=== PATIENT | male | born 1970 | race Caucasian/White ===

== ENCOUNTER 2017-06-20 15:35 | Emergency (ER) | payer MEDICARE ==
[2016-05-06 12:20] VITALS: BMI 30.8
[~2017-06-20 15:35] MED LIST: ABILIFY20 MG PO; ALBUTEROL2.5 MG/3 M INH; CATAPRES0.2 MG PO; DILAUDID2 MG PO; HYDROCODON-ACE1 EA12 PO; HYDROCODONE-APA1 TAB PO; HYTRIN5 MG PO; LISINOPRIL-HCTZ1 T13; LISINOPRIL-HCTZ1 T13 PO; MS CONTIN30 MG PO; NORVASC10 MG PO; PEPCID20 MG PO; PRINIVIL20 MG PO; SOMA350 MG PO; TRAZODONE HCL150 MG PO; ULTRAM50 MG PO; XANAX1 MG PO
[2017-06-20 16:18] LABS: BASOPHILS 0.2 % (0-2); EOSINOPHILS 2.3 % (0-7); HEMATOCRIT 41.1 % (42.0-54.0); HEMOGLOBIN 13.9 g/dL (13.5-17.5); IMMATURE GRANULOCYTES 0.4 % (0-5); MCH 32.3 pg (26.0-34.0); MCHC 33.8 g/dL (31.0-37.0); MCV 95.4 fL (80.0-100.0); MEAN PLATELET VOLUME 10.9 fL (7.4-10.4); MONOCYTES 9.2 % (2-11); NEUTROPHILS 59.9 % (40-80); PLATELET COUNT 109 10x3/uL (130-400); RBC 4.31 10x6/uL (4.20-6.10); RDW 14.3 % (11.5-14.5); WBC 5.3 10x3/uL (4.8-10.8)
[2017-06-20 16:36] LABS: ALBUMIN 3.5 g/dL (3.4-5.0); ALKALINE PHOSPHATASE 95 U/L (46-116); ALT (SGPT) 70 U/L (10-68); AMYLASE - SERUM 40 U/L (25-115); CALC OSMOLALITY 283 mosm/kg (275-300); CALCIUM 8.4 mg/dL (8.5-10.1); CARBON DIOXIDE 29.5 mmol/L (21.0-32.0); CHLORIDE - SERUM 104 mmol/L (98-107); CREATININE - SERUM 0.7 mg/dL (0.6-1.3); GLUCOSE 89 mg/dL (74-106); LIPASE 122 U/L (73-393); POTASSIUM - SERUM 3.6 mmol/L (3.5-5.1); PROTEIN - SERUM 6.9 g/dL (6.4-8.2); SODIUM 143 mmol/L (136-145); UREA NITROGEN 12 mg/dL (7-18); eGFR NON AFRICAN AMERICAN > 90 mL/min (90-120)
== END 2017-06-20 18:00 | disposition home or self-care (01) ==
LOC: D.ER 15:35
PROVIDERS: Emergency Medicine
DX: K80.50 Calculus of bile duct without cholangitis or cholecystitis without obstruction (principal); R11.10 Vomiting, unspecified; K29.00 Acute gastritis without bleeding; I10 Essential (primary) hypertension; F17.200 Nicotine dependence, unspecified, uncomplicated

== ENCOUNTER 2017-10-10 02:55 | Inpatient (IN) | payer MEDICARE ==
[2017-10-10] VITALS (15 sets, daily range): BP systolic 110–131; BP diastolic 59–91; BMI 31.8
[~2017-10-10] VITALS: Ht 175.3 cm; Wt 102.5 kg
[2017-10-10 03:34] LABS: BASOPHILS 0.3 % (0-2); EOSINOPHILS 2.9 % (0-7); HEMATOCRIT 48.7 % (42.0-54.0); HEMOGLOBIN 16.4 g/dL (13.5-17.5); IMMATURE GRANULOCYTES 0.8 % (0-5); LYMPHOCYTES 35.9 % (15-50); MCH 33.3 pg (26.0-34.0); MCHC 33.7 g/dL (31.0-37.0); MEAN PLATELET VOLUME 10.4 fL (7.4-10.4); MONOCYTES 9.3 % (2-11); NEUTROPHILS 50.8 % (40-80); RBC 4.92 10x6/uL (4.20-6.10); RDW 15.1 % (11.5-14.5); WBC 8.7 10x3/uL (4.8-10.8)
[2017-10-10 03:43] LABS: UDS - AMPHET NEGATIVE QUAL (NEGATIVE); UDS - BARB NEGATIVE QUAL (NEGATIVE); UDS - BENZO POSITIVE QUAL (NEGATIVE); UDS - COCAINE NEGATIVE QUAL (NEGATIVE); UDS - OPIATE NEGATIVE QUAL (NEGATIVE); UDS - PCP NEGATIVE QUAL (NEGATIVE); UDS - THC NEGATIVE QUAL (NEGATIVE)
[2017-10-10 03:44] LABS: ALKALINE PHOSPHATASE 89 U/L (46-116); ALT (SGPT) 95 U/L (10-68); BILIRUBIN - TOTAL 0.29 mg/dL (0.2-1.3); CALC OSMOLALITY 285 mosm/kg (275-300); CALCIUM 8.9 mg/dL (8.5-10.1); CARBON DIOXIDE 35.6 mmol/L (21.0-32.0); CHLORIDE - SERUM 102 mmol/L (98-107); CREATININE - SERUM 0.9 mg/dL (0.6-1.3); GLUCOSE 138 mg/dL (74-106); MAGNESIUM - SERUM 2.1 mg/dL (1.8-2.4); PLATELET COUNT 132 10x3/uL (130-400); POTASSIUM - SERUM 3.4 mmol/L (3.5-5.1); PROTEIN - SERUM 7.7 g/dL (6.4-8.2); SODIUM 142 mmol/L (136-145); UREA NITROGEN 14 mg/dL (7-18); eGFR NON AFRICAN AMERICAN > 90 mL/min (90-120)
[2017-10-10 03:45] LABS: APPEARANCE CLEAR (CLEAR); BILIRUBIN NEGATIVE (NEGATIVE); COLOR YELLOW (YELLOW); GLUCOSE 50 mg/dL (NEGATIVE); KETONE NEGATIVE (NEGATIVE); NITRITE NEGATIVE (NEGATIVE); PROTEIN NEGATIVE (NEGATIVE); UROBILINOGEN NORMAL (NORMAL)
[2017-10-10 04:50] LABS: TROPONIN-I < 0.017 ng/mL (0.000-0.060)
[2017-10-10] MEDS ORDERED: HYDROCODON-ACE1 EAC9 PO (11:51)
[2017-10-10] MEDS ORDERED: FLOMAX0.4 MG PO (18:07)
[2017-10-10] MEDS ORDERED: DYAZIDE 37.5/251 CAP PO (18:07)
[2017-10-10 21:15] LABS: EOS BF 1 %; MACROPHAGES BF 1 %; NEUT - BF 87 %
[2017-10-11] VITALS (23 sets, daily range): BP systolic 112–160; BP diastolic 69–98; Ht 175.3 cm; Wt 102.5 kg
[2017-10-11 04:49] LABS: INR 1.11 (0.85-1.17); PROTIME 13.9 SECONDS (11.6-15.0)
[2017-10-11 04:50] LABS: BASOPHILS 0 % (0-2); EOSINOPHILS 0 % (0-7); HEMATOCRIT 43.7 % (42.0-54.0); HEMOGLOBIN 14.6 g/dL (13.5-17.5); IMMATURE GRANULOCYTES 0.3 % (0-5); LYMPHOCYTES 9.9 % (15-50); MCH 32.5 pg (26.0-34.0); MCHC 33.4 g/dL (31.0-37.0); MCV 97.3 fL (80.0-100.0); MEAN PLATELET VOLUME 11.6 fL (7.4-10.4); NEUTROPHILS 85.8 % (40-80); PLATELET COUNT 101 10x3/uL (130-400); RBC 4.49 10x6/uL (4.20-6.10); WBC 7.7 10x3/uL (4.8-10.8)
[2017-10-11 04:56] LABS: ANION GAP 12.6 mmol/L (8-16); BILIRUBIN - DIRECT 0.14 mg/dL (0.00-0.30); BILIRUBIN - INDIRECT 0.25 mg/dL (0.00-1.00); BILIRUBIN - TOTAL 0.39 mg/dL (0.2-1.3); CALCIUM 7.9 mg/dL (8.5-10.1); CARBON DIOXIDE 28.9 mmol/L (21.0-32.0); MAGNESIUM - SERUM 1.6 mg/dL (1.8-2.4); PHOSPHOROUS 1.7 mg/dL (2.5-4.9); POTASSIUM - SERUM 3.5 mmol/L (3.5-5.1); PROTEIN - SERUM 6.4 g/dL (6.4-8.2)
[2017-10-11 05:04] LABS: CREATININE - SERUM 1.2 mg/dL (0.6-1.3)
[2017-10-12] VITALS (17 sets, daily range): BP systolic 121–152; BP diastolic 8–92
[2017-10-12 06:49] LABS: BASOPHILS 0 % (0-2); EOSINOPHILS 0 % (0-7); HEMATOCRIT 41.7 % (42.0-54.0); HEMOGLOBIN 14.2 g/dL (13.5-17.5); IMMATURE GRANULOCYTES 0.4 % (0-5); LYMPHOCYTES 5.9 % (15-50); MCHC 34.1 g/dL (31.0-37.0); MEAN PLATELET VOLUME 11.5 fL (7.4-10.4); MONOCYTES 4.4 % (2-11); NEUTROPHILS 89.3 % (40-80); PLATELET COUNT 104 10x3/uL (130-400); RDW 16.3 % (11.5-14.5)
[2017-10-12 07:01] LABS: WBC 10.1 10x3/uL (4.8-10.8)
[2017-10-12 07:08] LABS: ALBUMIN 2.9 g/dL (3.4-5.0); ALKALINE PHOSPHATASE 47 U/L (46-116); ALT (SGPT) 67 U/L (10-68); BILIRUBIN - TOTAL 0.56 mg/dL (0.2-1.3); CALC OSMOLALITY 299 mosm/kg (275-300); CALCIUM 7.7 mg/dL (8.5-10.1); CARBON DIOXIDE 27.4 mmol/L (21.0-32.0); CHLORIDE - SERUM 110 mmol/L (98-107); GLUCOSE 174 mg/dL (74-106); POTASSIUM - SERUM 3.6 mmol/L (3.5-5.1); PROTEIN - SERUM 6.4 g/dL (6.4-8.2); SODIUM 147 mmol/L (136-145); UREA NITROGEN 24 mg/dL (7-18); eGFR NON AFRICAN AMERICAN > 90 mL/min (90-120)
[2017-10-12 07:09] LABS: CREATININE - SERUM 0.8 mg/dL (0.6-1.3); MAGNESIUM - SERUM 2.2 mg/dL (1.8-2.4)
[2017-10-12 07:21] LABS: IMMUNOGLOBULIN E 399 IU/mL (0-100)
[2017-10-12 19:09] LABS: ACID FAST SMEAR Negative (()); AFB SPECIMEN PROCESSING Concentration (())
[2017-10-13 03:00] VITALS: BP 145/93
[2017-10-13 06:27] LABS: BASOPHILS 0 % (0-2); EOSINOPHILS 0 % (0-7); HEMATOCRIT 41.9 % (42.0-54.0); HEMOGLOBIN 14.3 g/dL (13.5-17.5); IMMATURE GRANULOCYTES 0.8 % (0-5); LYMPHOCYTES 7.5 % (15-50); MCH 32.8 pg (26.0-34.0); MCHC 34.1 g/dL (31.0-37.0); MCV 96.1 fL (80.0-100.0); MEAN PLATELET VOLUME 11.4 fL (7.4-10.4); MONOCYTES 5.3 % (2-11); NEUTROPHILS 86.4 % (40-80); PLATELET COUNT 103 10x3/uL (130-400); RBC 4.36 10x6/uL (4.20-6.10); RDW 16.2 % (11.5-14.5); WBC 10.5 10x3/uL (4.8-10.8)
[2017-10-13 06:50] LABS: ALKALINE PHOSPHATASE 47 U/L (46-116); BILIRUBIN - TOTAL 0.59 mg/dL (0.2-1.3); CALC OSMOLALITY 299 mosm/kg (275-300); CALCIUM 7.6 mg/dL (8.5-10.1); CARBON DIOXIDE 26.6 mmol/L (21.0-32.0); CHLORIDE - SERUM 108 mmol/L (98-107); CREATININE - SERUM 0.8 mg/dL (0.6-1.3); GLUCOSE 173 mg/dL (74-106); MAGNESIUM - SERUM 2.1 mg/dL (1.8-2.4); PHOSPHOROUS 1.9 mg/dL (2.5-4.9); POTASSIUM - SERUM 3.3 mmol/L (3.5-5.1); PROTEIN - SERUM 6.4 g/dL (6.4-8.2); SODIUM 146 mmol/L (136-145); UREA NITROGEN 26 mg/dL (7-18); eGFR NON AFRICAN AMERICAN > 90 mL/min (90-120)
[2017-10-13 07:00] VITALS: BP 150/90
[2017-10-13 07:08] LABS: ALT (SGPT) 120 U/L (10-68)
[2017-10-13] MEDS ORDERED: MOBIC7.5 MG PO (07:11)
[2017-10-13] MEDS ORDERED: GABAPENTIN100 MG PO (07:11)
[2017-10-13] MEDS ORDERED: PREDNISONE20 MG PO (10:15)
[2017-10-13] MEDS ORDERED: LEVAQUIN500 MG PO (10:17)
[2017-10-14 12:14] LABS: FUNGUS STAIN Final report (())
[2017-10-20 10:19] LABS: VIRAL - RESULT No virus isolated. (())
[2017-11-09 07:26] LABS: FUNGUS MYCOLOGY CULTURE Final report (())
== END 2017-10-13 11:15 | disposition home or self-care (01) | DRG 871 ==
LOC: D.ER 02:55 → D.ICU 09:24 → D.CVICU 10-11 19:44
PROVIDERS: Emergency Medicine; Internal Medicine Nephrology; Internal Medicine Pulmonary Disease
PROC: 0BD68ZX Extraction of Right Lower Lobe Bronchus, Via Natural or Artificial Opening Endoscopic, Diagnostic (ICD-10-PCS; principal; 2017-10-10)
PROC: 0BH17EZ Insertion of Endotracheal Airway into Trachea, Via Natural or Artificial Opening (ICD-10-PCS; 2017-10-10)
PROC: 5A1945Z Respiratory Ventilation, 24-96 Consecutive Hours (ICD-10-PCS; 2017-10-10)
PROC: 0T9B70Z Drainage of Bladder with Drainage Device, Via Natural or Artificial Opening (ICD-10-PCS; 2017-10-10)
DX: A41.9 Sepsis, unspecified organism (principal); J96.22 Acute and chronic respiratory failure with hypercapnia; J96.21 Acute and chronic respiratory failure with hypoxia; J44.1 Chronic obstructive pulmonary disease with (acute) exacerbation; F10.129 Alcohol abuse with intoxication, unspecified; Y90.8 Blood alcohol level of 240 mg/100 ml or more; E87.6 Hypokalemia; K74.60 Unspecified cirrhosis of liver; B19.20 Unspecified viral hepatitis C without hepatic coma; I10 Essential (primary) hypertension; F32.9 Major depressive disorder, single episode, unspecified; Z72.0 Tobacco use; E83.39 Other disorders of phosphorus metabolism; E83.42 Hypomagnesemia

== ENCOUNTER → 2018-01-11 19:23 | Outpatient (CLI) | payer MEDICARE ==
[2017-10-11 08:32] VITALS: BMI 32.5
[~2018-01-11 19:23] MED LIST changes: +DYAZIDE 37.5/251 CAP PO; +FLOMAX0.4 MG PO; +GABAPENTIN100 MG PO; +HYDROCODON-ACE1 EAC9 PO; +LEVAQUIN500 MG PO; +MOBIC7.5 MG PO; +PREDNISONE20 MG PO
== END | disposition home or self-care (01) ==
LOC: D.SLEEP 08:00
DX: G47.33 Obstructive sleep apnea (adult) (pediatric) (principal)

== ENCOUNTER → 2018-03-31 10:59 | Outpatient (CLI) | payer MEDICARE ==
[2017-10-11 08:32] VITALS: BMI 32.5
== END | disposition home or self-care (01) ==
LOC: D.RT 03-27 14:00 → D.RAD 03-27 14:00 → D.RT 03-27 14:45 → D.RAD 03-27 15:00 → D.RT 10:59
DX: Z87.01 Personal history of pneumonia (recurrent) (principal); J45.909 Unspecified asthma, uncomplicated

== ENCOUNTER → 2019-04-25 10:25 | Outpatient (CLI) | payer MEDICARE ==
[2017-10-11 08:32] VITALS: BMI 32.5
== END | disposition home or self-care (01) ==
LOC: D.MRI 10:25
PROVIDERS: ATTEND Family Medicine
DX: M54.2 Cervicalgia (principal); M54.5 Low back pain

== ENCOUNTER 2019-05-01 09:57 | Emergency (ER) | payer MEDICARE ==
[~2019-05-01] VITALS: Ht 175.3 cm; Wt 83.2 kg
[2019-05-01 09:58] VITALS: Ht 175.3 cm; Wt 83.2 kg
[2019-05-01 12:35] VITALS: BP 158/86
== END 2019-05-01 12:35 | disposition home or self-care (01) ==
LOC: D.ER 09:57
DX: M25.571 Pain in right ankle and joints of right foot (principal); W19.XXXA Unspecified fall, initial encounter; M54.9 Dorsalgia, unspecified; G89.29 Other chronic pain; I10 Essential (primary) hypertension

== ENCOUNTER 2019-07-07 04:51 | Emergency (ER) | payer MEDICARE ==
[~2019-07-07] VITALS: Ht 175.3 cm; Wt 95.5 kg
[2019-07-07 05:04] VITALS: Ht 175.3 cm; Wt 95.5 kg
--- NOTE | 2019-07-07 05:57 | NUR ---
DR. TANG NOTIFIED AND SITTER ORDERED. SITTER AT BEDSIDE. NOTIFIED CHARGE NURSE AND ATTENDING IN REGARDS TO ASSESSMENT FINDINGS. RESOURCES GIVEN TO PT AND SAFETY PLAN INITIATED.
[2019-07-07 06:11] LABS: BASOPHILS 0.2 % (0-2); EOSINOPHILS 2.5 % (0-7); HEMATOCRIT 40.4 % (42.0-54.0); HEMOGLOBIN 14.3 g/dL (13.5-17.5); IMMATURE GRANULOCYTES 0.4 % (0-5); LYMPHOCYTES 25.1 % (15-50); MCHC 35.4 g/dL (31.0-37.0); MCV 90.4 fL (80.0-100.0); MEAN PLATELET VOLUME 9.6 fL (7.4-10.4); MONOCYTES 8.3 % (2-11); NEUTROPHILS 63.5 % (40-80); RBC 4.47 10x6/uL (4.20-6.10); RDW 15.2 % (11.5-14.5); WBC 8.5 10x3/uL (4.8-10.8)
[2019-07-07 06:19] LABS: PLATELET COUNT 183 10x3/uL (130-400)
[2019-07-07 06:27] LABS: ACETAMINOPHEN 9.1 ug/mL (10.0-30.0); ALBUMIN 4.3 g/dL (3.4-5.0); ALKALINE PHOSPHATASE 81 U/L (46-116); ALT (SGPT) 71 U/L (10-68); CALC OSMOLALITY 264 mosm/kg (275-300); CALCIUM 8.4 mg/dL (8.5-10.1); CARBON DIOXIDE 31.6 mmol/L (21.0-32.0); CHLORIDE - SERUM 91 mmol/L (98-107); CREATININE - SERUM 0.9 mg/dL (0.6-1.3); GLUCOSE 93 mg/dL (74-106); MAGNESIUM - SERUM 1.8 mg/dL (1.8-2.4); PROTEIN - SERUM 7.6 g/dL (6.4-8.2); SODIUM 133 mmol/L (136-145); UREA NITROGEN 10 mg/dL (7-18); eGFR NON AFRICAN AMERICAN > 90 mL/min (90-120)
[2019-07-07 06:30] LABS: POTASSIUM - SERUM 2.9 mmol/L (3.5-5.1)
[2019-07-07 07:42] LABS: APPEARANCE CLEAR (CLEAR); BILIRUBIN NEGATIVE (NEGATIVE); COLOR YELLOW (YELLOW); GLUCOSE NEGATIVE (NEGATIVE); KETONE NEGATIVE (NEGATIVE); NITRITE NEGATIVE (NEGATIVE); PROTEIN NEGATIVE (NEGATIVE); SPECIFIC GRAVITY 1.005 (1.005-1.020); UROBILINOGEN NORMAL (NORMAL)
[2019-07-07 07:48] LABS: UDS - AMPHET NEGATIVE QUAL (NEGATIVE); UDS - BARB NEGATIVE QUAL (NEGATIVE); UDS - BENZO POSITIVE QUAL (NEGATIVE); UDS - COCAINE NEGATIVE QUAL (NEGATIVE); UDS - OPIATE POSITIVE QUAL (NEGATIVE); UDS - PCP NEGATIVE QUAL (NEGATIVE); UDS - THC NEGATIVE QUAL (NEGATIVE)
[2019-07-07] MEDS ORDERED: POTASSIUM99 M1 (07:55)
[2019-07-07] MEDS ORDERED: HYDROCODON-ACE1 EA10 PO (07:55)
[2019-07-07 12:53] VITALS: BP 134/90
== END 2019-07-07 12:58 ==
LOC: D.ER 04:51
PROVIDERS: Family Medicine
DX: R45.851 Suicidal ideations (principal); F32.9 Major depressive disorder, single episode, unspecified; I10 Essential (primary) hypertension

== ENCOUNTER 2019-08-09 16:26 | Emergency (ER) | payer MEDICARE ==
[~2019-08-09] VITALS: Ht 175.3 cm; Wt 83.2 kg
[~2019-08-09 16:26] MED LIST changes: +HYDROCODON-ACE1 EA10 PO; +POTASSIUM99 M1
[2019-08-09 16:29] VITALS: BP 157/101; Ht 175.3 cm; Wt 83.2 kg
[2019-08-09] MEDS ORDERED: DICLOFENAC SODI50 MG PO (17:32)
[2019-08-09] MEDS ORDERED: CYCLOBENZAPRINE5 MG PO (17:32)
== END 2019-08-09 18:15 | disposition home or self-care (01) ==
LOC: D.ER 16:26
DX: M54.9 Dorsalgia, unspecified (principal); M54.2 Cervicalgia; V47.5XXA Car driver injured in collision with fixed or stationary object in traffic accident, initial encounter